=== PATIENT | male | born 1955 | race Caucasian/White ===

== ENCOUNTER 2017-09-09 12:29 | Emergency (ER) | payer OTHER ==
[~2017-09-09] VITALS: Ht 177.8 cm; Wt 70.3 kg
[2017-09-09] MEDS ORDERED: PREDNISONE 20 M20 MG PO (13:34)
== END 2017-09-09 13:48 | disposition home or self-care (01) ==
LOC: ER 12:29
DX: M54.9 Dorsalgia, unspecified (principal); M19.90 Unspecified osteoarthritis, unspecified site

== ENCOUNTER 2018-09-04 11:27 | Emergency (ER) | payer OTHER ==
[~2018-09-04 11:27] MED LIST: PREDNISONE 20 M20 MG PO
[2018-09-04 11:50] VITALS: BP 124/54
== END 2018-09-04 13:44 | disposition left against medical advice (07) ==
LOC: ER 11:27
DX: Z53.21 Procedure and treatment not carried out due to patient leaving prior to being seen by health care provider (principal)